=== PATIENT | female | born 1990 | race Two or more races ===

== ENCOUNTER 2017-07-14 01:25 | Emergency (ER) | payer SELFPAY ==
[~2017-07-14] VITALS: Ht 154.9 cm; Wt 59.0 kg
[2017-07-14 01:28] VITALS: BP 101/52
[2017-07-14] MEDS ORDERED: AZIT250T PO (01:44)
--- NOTE | 2017-07-14 01:44 | PHYS DOC ---
Adult General Chief Complaint Chief Complaint: HEADACHE HPI HPI Patient is a 27 year old F who presents with an acute sinus infection. Patient states approximately one week ago she wasn't able and today she denied developing a sinus infection with sinus drainage. Patient and plans of pain in her maxillary sinuses. Patient states she went to dinner and then to a movie wants a movie get out she's had a come the emergency room to get treatment. Patient denies any fevers. Patient denies any chest pain returns of breath. Patient denies any neck pain or headaches. Patient is no other complaints. Review of Systems Review of Systems GEN: Denies fevers, chills, sweats HEENT: Sinus pain CV: Denies chest pain RESP: Denies shortness of air, cough GI: Denies n/v/d NEURO: Denies confusion, dizziness MSK: Denies weakness, joint pain/swelling All other systems were reviewed and found to be within normal limits, except as documented in this note. Physical Exam Physical Exam GEN.: No apparent distress. Alert and oriented. HEENT: Head is normocephalic, atraumatic, turbinates swollen bilaterally, purulent sinus drainage, TMs clear bilaterally, posterior pharynx nonerythematous no tonsillar swelling, no dry sockets noted on exam of the mouth from the recent wisdom teeth extraction NECK: Supple, no lymphadenopathy, no meningeal signs LUNGS: CTAB. HEART: RRR, S1, S2 present. Peripheral pulses intact ABDOMEN: Soft, nontender. Positive bowel sounds. EXTREMITIES: Without any cyanosis. NEUROLOGIC: Normal speech, normal tone PSYCHIATRIC: Normal affect, normal mood. SKIN: No ulcerations EKG EKG [] Radiology/Procedures Radiology/Procedures [] Course & Med Decision Making Course & Med Decision Making Pertinent Labs and Imaging studies reviewed. (See chart for details) MDM: After reviewing the chart, CC/HPI/PMH, physical exam, I do not believe the patient has a severe bacterial infection such as meningitis warranting further workup and/or admission at this time. Based on the history of present illness and appears the patient has acute sinusitis and will treat with a short course of antibiotics. Patient stable for discharge. Additional verbal discharge instructions were provided to the patient and that if symptoms get worse or any new symptoms arise that are worrisome to the patient she is to return to the emergency room immediately [] Dragon Disclaimer Dragon Disclaimer This electronic medical record was generated, in whole or in part, using a voice recognition dictation system. Departure Departure Impression: Primary Impression: Sinusitis Disposition: 01 HOME, SELF-CARE Condition: STABLE Patient Instructions: Sinusitis Additional Instructions: Please follow-up with your family physician in the next one to 2 days and return if symptoms increase Scripts Azithromycin (ZITHROMAX) 250 Mg Tablet 1 PKG PO UD, #6 TAB Prov: MARI SNYDER DO 07/14/17 MARI SNYDER DO Jul 14, 2017 01:44
== END 2017-07-14 02:20 | disposition home or self-care (01) ==
LOC: ER 01:25
DX: J32.9 Chronic sinusitis, unspecified (principal)
CPT/HCPCS: 99283